=== PATIENT | male | born 1950 | race Caucasian/White ===

== ENCOUNTER → 2016-12-30 | Outpatient (CLI) | payer OTHER ==
[~2016-12-30] MED LIST: IBUP-1050 PO; TAMS0.4C38 PO; ZOLP5TAB PO
[2016-12-30 18:51] LABS: ALB/GLOB RATIO 1.1 (0.9-2); ALKALINE PHOSPHATASE 36 U/L (45-117); ALT/SGPT 126 U/L (12-78); AST/SGOT 96 U/L (15-37); BLOOD UREA NITROGEN 29 mg/dl (7-18); CARBON DIOXIDE 24 mmol/L (21-32); CHLORIDE 107 mmol/L (98-107); GLUCOSE 71 mg/dl (70-99); POTASSIUM 3.9 mmol/L (3.5-5.1); SODIUM 142 mmol/L (136-145)
== END | disposition home or self-care (01) ==
LOC: C.LAB1850 15:53
PROVIDERS: ATTEND Internal Medicine
DX: B18.2 Chronic viral hepatitis C (principal); R94.5 Abnormal results of liver function studies; Z12.5 Encounter for screening for malignant neoplasm of prostate

== ENCOUNTER → 2018-06-28 | Outpatient (CLI) | payer OTHER ==
[2018-06-28 09:33] LABS: HEMATOCRIT 44.8 % (42-52); HEMOGLOBIN 14.8 g/dL (14.0-18.0); MEAN CELL VOLUME 100.2 fL (80-100); MEAN CORPUSCULAR HEMOGLOBIN 33.1 pg (25-34); MEAN PLATELET VOLUME 10.8 fL (7.4-10.4); PLATELET COUNT 338 K/uL (130-400); RED CELL DISTRIBUTION WIDTH SD 51.4 fL (36.4-46.3); WHITE BLOOD COUNT 5.43 K/uL (4.8-10.8)
[2018-06-28 10:04] LABS: ALBUMIN 3.9 gm/dl (3.4-5.0); ALKALINE PHOSPHATASE 42 U/L (45-117); ALT/SGPT 304 U/L (12-78); AST/SGOT 196 U/L (15-37); BLOOD UREA NITROGEN 21 mg/dl (7-18); CALCIUM 9.1 mg/dl (8.5-10.1); CARBON DIOXIDE 27 mmol/L (21-32); CHOLESTEROL 133 mg/dl (0-200); CREATININE 1.25 mg/dl (0.60-1.40); GLUCOSE 92 mg/dl (70-99); LDL CHOLESTEROL CALCULATED 69 mg/dl; POTASSIUM 4.4 mmol/L (3.5-5.1); SODIUM 139 mmol/L (136-145); TOTAL PROTEIN 8.4 gm/dl (6.4-8.2)
== END | disposition home or self-care (01) ==
LOC: C.LAB1850 07:38
PROVIDERS: ATTEND Internal Medicine
DX: B18.2 Chronic viral hepatitis C (principal); G47.00 Insomnia, unspecified; Z13.220 Encounter for screening for lipoid disorders